=== PATIENT | female | born 1985 | race Caucasian/White ===

== ENCOUNTER 2018-03-23 13:40 | Emergency (ER) | payer BC ==
[2018-03-23] VITALS (7 sets, daily range): BP systolic 121–166; BP diastolic 65–89; PULSE 84–129; RESP 17–26; TEMP 98.2; O2SAT 98–100
[~2018-03-23] VITALS: Ht 165.1 cm; Wt 75.0 kg
[2018-03-23] MEDS ORDERED: SODIUM CHLOR 0.9% 1000 ML INJ 1,000 ML IV SCH (13:47)
--- NOTE | 2018-03-23 13:55 | PD ---
HPI Chief Complaint: Allergic reaction Time Seen by Provider: 13:43 Travel History International Travel<30 days: No Contact w/Intl Traveler<30days: No Traveled to known affect area: No History of Present Illness HPI The patient is a 32-year-old female who presents to the emergency department for anaphylactic reaction. The patient states she was bit by a red and earlier today on the left great toe, now complains of systemic symptoms including diffuse rash which is pleuritic, shortness of breath, nausea, and mild throat swelling. The patient does have a history of allergic reactions in the past which have been localized, however, he denies any previous history of a systemic reaction to a bug bite. She does have a brother who has anaphylaxis secondary to peanuts. The patient denies any audible wheezing but does complain of chest tightness as well as mild throat tightness, nausea, and diffuse rash which is pruritic. The patient denies any diarrhea or abdominal pain. She does have a history of nausea, vomiting, diarrhea with the consumption of oysters which may be an allergic reaction as well. The patient did take Benadryl prior to arrival, however, her symptoms have persisted. 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 There are no current alleviating factors. PFSH Past Medical History Narrative Medical Anxiety, depression Past Surgical History Narrative Surgical Tonsillectomy Social History Tobacco Use: No Allergies-Medications (Allergen,Severity, Reaction): Coded Allergies: No Known Allergies (Unverified , 03/23/18) Reported Meds & Prescriptions Reported Meds & Active Scripts Active Zantac (Ranitidine HCl) 150 Mg Tab 150 Mg PO BID 5 Days Diphenhydramine (Diphenhydramine HCl) 25 Mg Cap 25 Mg PO Q6H PRN Prednisone 20 Mg Tab 40 Mg PO DAILY Take 40 mg (2 tablets) daily for 5 days Epipen 2-Reece Inj (Epinephrine) 0.3 Mg/0.3 Ml Pfpen 0.3 Mg IM ONCE PRN Reported Lexapro (Escitalopram Oxalate) 10 Mg Tab 10 Mg PO DAILY Xanax (Alprazolam) 0.5 Mg Tab 0.5 Mg PO Q8H PRN Review of Systems Except as stated in HPI: all other systems reviewed are Neg General / Constitutional: No: Fever HENT: No: Lightheadedness Cardiovascular: No: Chest Pain or Discomfort Respiratory: Positive: Shortness of Breath Gastrointestinal: Positive: Nausea, No: Vomiting, Abdominal Pain Skin: Positive Rash, Positive Itching Physical Exam Narrative GENERAL: Awake, alert, pleasant 32-year-old female who appears her stated age and is in no acute respiratory distress. She does appear mildly anxious. SKIN: Blanching erythema noted of the entire back as well as chest wall and proximal extremities. The patient does have your urticaria visible. HEAD: Atraumatic. Normocephalic. EYES: Pupils equal and round. No scleral icterus. No injection or drainage. ENT: No nasal bleeding or discharge. Mucous membranes pink and moist. No visible angioedema of the lips, tongue, or uvula. NECK: Trachea midline. No JVD. CARDIOVASCULAR: Regular, tachycardic with a heart rate in the 120s. RESPIRATORY: Tachypnea with a respiratory rate of 24. No audible wheezing. GASTROINTESTINAL: Abdomen soft, non-tender, nondistended. MUSCULOSKELETAL: No obvious deformities. No clubbing. No cyanosis. No edema. NEUROLOGICAL: Awake and alert. No obvious cranial nerve deficits. Motor grossly within normal limits. Normal speech. PSYCHIATRIC: Slightly anxious; insight and judgment normal. Data Data Last Documented VS Vital Signs Date Time Temp Pulse Resp B/P (MAP) Pulse Ox O2 Delivery O2 Flow Rate FiO2 03/23/18 18:18 03/23/18 17:30 87 17 98 Room Air 03/23/18 13:49 98.2 Orders Orders Ecg Monitoring (03/23/18 13:47) Iv Access Insert/Monitor (03/23/18 13:47) Oximetry (03/23/18 13:47) Diphenhydramine Inj (Benadryl Inj) (03/23/18 14:00) Methylprednisolone So Succ Inj (Solumedr (03/23/18 14:00) Famotidine Inj (Pepcid Inj) (03/23/18 14:00) Sodium Chlor 0.9% 1000 Ml Inj (Ns 1000 M (03/23/18 13:47) Sodium Chloride 0.9% Flush (Ns Flush) (03/23/18 14:00) Epinephrine (1:1000) Inj (Adrenalin (1:1 (03/23/18 14:00) Ed Discharge Order (03/23/18 17:59) [facility] Medical Decision Making Medical Screen Exam Complete: Yes Emergency Medical Condition: Yes Medical Record Reviewed: Yes Differential Diagnosis Differential diagnosis includes anaphylaxis, allergic reaction, bug bite, histamine reaction. Narrative Course IV was established and the patient was placed on cardiac telemetry monitoring and continuous pulse oximetry monitoring. The patient was administered epinephrine 0.3 mg IM. The patient also received Solu-Medrol 125 mg intravenously, Benadryl 25 mg intravenously, and Pepcid 20 mg intravenously. The patient was administered 1 L of IV fluids and was monitored in the emergency department for rebound symptoms. The patient's symptoms improved after administration of epinephrine. The patient was monitored for 4 hours. There is no rebound effect. The patient will be discharged home, will also be provided a prescription for an EpiPen. She is advised to take medications as directed and return if symptoms worsen or progress. Critical Care Narrative Aggregate critical care time was 35 minutes. Time to perform other separately billable procedures was not included in the critical care time. My time did not include minutes spent treating any other patients simultaneously or on activities that did not directly contribute to the patient's treatment. The services I provided to this patient were to treat and/or prevent clinically significant deterioration that could result in: Anaphylaxis, hypotension, anaphylactic shock, airway compromise. I provided critical care services requiring my management, as noted below: Chart data review, documentation time, medication orders and management, vital sign assessments/reviewing monitor data, ordering and reviewing lab tests, ordering and interpreting/reviewing x-rays and diagnostic studies, care of the patient and discussion of the patient with the admitting physicians. Diagnosis Primary Impression: Anaphylaxis Qualified Codes: T78.2XXA - Anaphylactic shock, unspecified, initial encounter Patient Instructions: General Instructions Additional Instructions: Medications as directed. Follow-up with your primary physician. Return if symptoms worsen or progress. Med/Other Pt SpecificInfo: Prescription(s) given Scripts Ranitidine (Zantac) 150 Mg Tab 150 MG PO BID for Reduce Stomach Acid for 5 Days, #10 TAB 0 Refills Prov: Georges Butler MD 03/23/18 Diphenhydramine (Diphenhydramine) 25 Mg Cap 25 MG PO Q6H Y for ALLERGIES, #20 CAP 0 Refills Prov: Georges Butler MD 03/23/18 Prednisone (Prednisone) 20 Mg Tab 40 MG PO DAILY, #10 TAB 0 Refills Take 40 mg (2 tablets) daily for 5 days Prov: Georges Butler MD 03/23/18 Epinephrine Inj (Epipen 2-Reece Inj) 0.3 Mg/0.3 Ml Pfpen 0.3 MG IM ONCE Y for ALLERGIC REACTION, #1 PACK 0 Refills Prov: Georges Butler MD 03/23/18 Disposition: 01 DISCHARGE HOME Condition: Stable Georges Butler MD Mar 23, 2018 13:55
[2018-03-23] MEDS ORDERED: methylPREDNISolone SOD SUCC 125 MG/2 ML VIAL IV PUSH ONE (14:00)
[2018-03-23] MEDS ORDERED: SODIUM CHLORIDE 0.9% FLUSH 10 ML FLUSH IV FLUSH PRN (14:00)
[2018-03-23] MEDS ORDERED: EPINEPHrine HCL (1:1000) 1 MG/ML VIAL IM ONE (14:00)
[2018-03-23] MEDS ORDERED: diphenhydrAMINE HCL 50 MG/ML VIAL IVP ONE (14:00)
[2018-03-23] MEDS ORDERED: FAMOTIDINE 20 MG/2 ML VIAL IV PUSH ONE (14:00)
[2018-03-23] MEDS ORDERED: ALPR.5 PO (14:03)
[2018-03-23] MEDS ORDERED: LEXA10TA PO (14:03)
[2018-03-23] MEDS ORDERED: PRED20 PO (17:12)
[2018-03-23] MEDS ORDERED: ZANT150T2 PO (17:12)
[2018-03-23] MEDS ORDERED: DIPH25CA PO (17:12)
[2018-03-23] MEDS ORDERED: EPIP0.3I IM (17:12)
== END 2018-03-23 18:21 | disposition home or self-care (01) ==
LOC: NEPC 13:40
DX: T78.2XXA Anaphylactic shock, unspecified, initial encounter (principal); R21 Rash and other nonspecific skin eruption; L53.9 Erythematous condition, unspecified; R06.02 Shortness of breath; R11.0 Nausea; F41.9 Anxiety disorder, unspecified; F32.9 Major depressive disorder, single episode, unspecified; Z79.899 Other long term (current) drug therapy
CPT/HCPCS: 96361; 96372; 96374; 96375; 99291; J0171; J1200; J2930; J7030